=== PATIENT | male | born 2000 | race Caucasian/White ===

== ENCOUNTER 2023-01-28 18:40 | Emergency (ER) | payer SELFPAY ==
[2023-01-28] MEDS ORDERED: Diphtheria,Pertussis(Acell),Tetanus Vaccine 0.5 ML Syringe IM ONE (20:07)
[2023-01-28] MEDS ORDERED: Lidocaine 1% 5 ML VIAL INJECT ONE (20:08)
[2023-01-28] MEDS ORDERED: cefTRIAXone 1 GM in Sodium Chloride 0.9% 50 ML IV ONE (20:08)
== END 2023-01-28 21:48 | disposition home or self-care (01) ==
LOC: MW.ED 18:40
DX: S68.123A Partial traumatic metacarpophalangeal amputation of left middle finger, initial encounter (principal); W23.0XXA Caught, crushed, jammed, or pinched between moving objects, initial encounter
CPT/HCPCS: 64450; 73130; 96365; 99283; J0696; J3490